=== PATIENT | male | born 2000 | race African-American/Black ===

== ENCOUNTER 2018-02-24 19:56 | Emergency (ER) | payer OTHER ==
[~2018-02-24] VITALS: Ht 182.9 cm; Wt 68.0 kg
[2018-02-24 22:42] LABS: *AMPHETAMINES SCREEN URINE NEGATIVE (NEGATIVE); *BARBITURATES SCREEN URINE NEGATIVE (NEGATIVE); *BENZODIAZEPINES SCREEN URINE NEGATIVE (NEGATIVE); *COCAINE SCREEN URINE NEGATIVE (NEGATIVE)
[2018-02-24 22:43] LABS: CANNABINOID URINE SCREEN NEGATIVE (NEGATIVE); METHADONE URINE SCREEN NEGATIVE (NEGATIVE); OPIATES URINE SCREEN NEGATIVE (NEGATIVE); PHENCYCLIDINE URINE SCREEN NEGATIVE (NEGATIVE)
[2018-02-25 00:26] LABS: CHLORIDE 108 mEq/L (98-107)
[2018-02-25 00:28] LABS: BASOPHILS % 1.3 % (0.0-2.0); EOSINOPHILS % 3.4 % (0.0-5.0); HEMATOCRIT. 42.6 % (42.0-52.0); HEMOGLOBIN. 14.3 g/dL (14.0-18.0); LYMPHOCYTES % 45.4 % (20.0-50.0); MEAN CORPUSCULAR VOLUME 86.3 fL (80.0-94.0); MEAN PLATELET VOLUME 10.2 fl (7.4-10.4); MONOCYTES % 9.7 % (2.0-8.0); NEUTROPHILS % 40.2 % (40.0-76.0); PLATELET 196 x1000/uL (130-400); RED BLOOD CELL COUNT 4.94 mill/uL (4.7-6.1); RED CELL DISTRIBUTION WIDTH 12.8 % (11.6-14.6)
[2018-02-25 00:30] LABS: ETHANOL BLOOD < 10 mg/dL
[2018-02-26 09:12] VITALS: BP 112/72
== END 2018-02-26 13:05 ==
LOC: ER 20:34
DX: Z00.8 Encounter for other general examination (principal); R06.09 Other forms of dyspnea; Z88.6 Allergy status to analgesic agent
CPT/HCPCS: 36415; 80048; 80305; 80307; 80329; 85025; 99284; G0482